=== PATIENT | male | born 1940 | race Caucasian/White ===

== ENCOUNTER 2019-07-12 15:23 | Outpatient (CLI) | payer MEDICARE, OTHER, SELFPAY ==
--- NOTE | 2019-07-12 15:45 | US_ITS ---
WS: [id number] RENAL ULTRASOUND REASON FOR EXAM: CHRONIC KIDNEY DISEASE TECHNIQUE: Grayscale and Doppler ultrasound examination of the kidneys. FINDINGS: Right kidney: Right kidney measures 11.0 cm x 4.5 cm x 4.7 cm. Multiple anechoic changes in both kidn eys the right kidney shows a larger lesion measures 2.42 x 1.80 x 2.0 cm. Left kidney: Left kidney measures 10.8 cm x 3.9 cm x 4.9 cm. Multiple hypoechoic lesions of the left kidney are also seen. The largest measures 3.82 x 3.91 x 3.22 cm. An additional lesion measures 1.92 x 1.86 x 2.15 cm both kidneys show cystic changes. No evidence of hydronephrosis no stones normal echotexture of both kidneys. The aorta was normal. US/US renal BI* [id number] IMPRESSION: Multiple anechoic areas are noted in both kidneys the largest were measured and seen above. The urinary bladder was contracted and poorly evaluated.
== END 2019-07-12 15:24 | disposition home or self-care (01) ==
LOC: US 15:24
PROVIDERS: Family Provider Internal Medicine; Visit Provider Internal Medicine Nephrology
DX: N18.9 Chronic kidney disease, unspecified (principal)
CPT/HCPCS: 76770

== ENCOUNTER 2020-10-08 12:52 | Outpatient (CLI) | payer MEDICARE, OTHER, SELFPAY ==
--- NOTE | 2020-10-08 13:10 | CT_ITS ---
WS: [id number] CT CHEST, ABDOMEN AND PELVIS WITHOUT CONTRAST. HISTORY: COLON CANCER METASTASIZED TO INTRA-ABDOMINAL LYMPH NODES TECHNIQUE: Contiguous 5 mm axial imaging performed through the chest, abdomen and pelvis without IV c ontrast, oral contrast has been provided. Coronal and sagittal reformats chest. Coronal and sagittal reformats through the abdomen and pelvis. All CT scans at [facility] use at least one of these dose optimization techniques: automated exposure control; mA and/or kV adjustment per patient s ize (includes targeted exams where dose is matched to clinical indication); or iterative reconstructi on. CONTRAST: None DLP: 1703.21 mGycm COMPARISON: 07/12/[address]: There are several small peripheral micronodules throughout both lungs which are very nonspe cific. There are also calcified granuloma. 5 mm nodule in the RIGHT middle lobe is probably a branchi ng vessel. Mild atherosclerosis of the aorta. Normal size pulmonary artery. Heart size is normal. No adenopathy. Substernal thyroid. Oral contrast layering in the distal esophagus. Abdomen CT: Normal size liver. There are a few scattered hypodensities which appear to been present o n the prior study. Cannot further evaluate without IV contrast. Gallbladder has been removed. Spleen and pancreas are negative on this unenhanced study. No adrenal mass. There are multiple bilateral oumou al masses. Some of these masses are low attenuation and some are of increased density or mixed densit y. No hydronephrosis. Mild atherosclerosis of aorta. No adenopathy No GI tract obstruction. Pelvic CT: No free fluid or adenopathy. Moderately well distended urinary bladder. Prostate gland is enlarged encroaching into the urinary bladder. Prostate gland is asymmetric and greater to the LEFT o f midline. No inguinal or pelvic adenopathy. Increase in thoracic kyphosis. Bones are osteopenic. Nonspecific 8 mm lytic focus in T5. CT/CT chest abd pel wo con IMPRESSION: 1. Study is compromised without IV contrast. 2. Numerous renal mass is correspond to multiple renal cysts and complex cysts as described on 07/12/2018. 3. Low-attenuation lesions within the liver are stable and probably small cyst s. 4. No adrenal mass. 5. No definite metastatic lesions within the lungs. There are a few micronodul es which can be followed up in 6-[address] if clinically thought necessar y. 6. No metastatic nodules within the abdomen or pelvis. 7. Enlarged asymmetric prostate gland extending into the urinary bladder. 8. Single lytic lesion in the T5 vertebral body. Very nonspecific. No prior st udies for comparison. Consider bone scan follow-up.
[2020-10-08] MEDS: iohexol 300 mg/mL 50 mL Btl PO (13:27)
== END 2020-10-08 12:53 | disposition home or self-care (01) ==
PROVIDERS: Visit Provider Urology
DX: C18.9 Malignant neoplasm of colon, unspecified (principal); N28.89 Other specified disorders of kidney and ureter; K76.89 Other specified diseases of liver; N40.0 Benign prostatic hyperplasia without lower urinary tract symptoms
CPT/HCPCS: 71250; 74176; Q9967

== ENCOUNTER 2022-10-26 11:31 | Outpatient (CLI) | payer MEDICARE, OTHER, SELFPAY ==
--- NOTE | 2022-10-26 11:53 | USCV_ITS ---
Orville Mead Age: 82 Gender: M : 1940 Exam Date: 10/26/2022 12:53 Ordering Phys: Shannan Mead MD Technologist: CT Exam Location: [facility] [place]_ Indication: swelling PROCEDURES: Bilaterally, the common femoral, superficial femoral, profunda femoral, popliteal, posterior tibial, greater saphenous veins, and the peroneal trunk were identified and interrogated in the standard fashion. These veins were found to be easily compressible with spontaneous blood flow. No evidence of insufficiency or thrombus noted. FINDINGS: normal us CONCLUSIONS No evidence of right lower extremity DVT. No evidence of left lower extremity DVT. Jay Garcia MD (Electronically Signed) Final Date: 26 October 2022 15:45 S
--- NOTE | 2022-10-26 12:42 | XR_ITS ---
WS: [id number] EXAMINATION: XR chest 2V* [id number] REASON FOR EXAM: LOCALIZED EDEMA COMPARISON: 05/18/2016 ORDER DATE: 10/26/2022 1:00 PM FINDINGS: The lungs are clear of infiltrate. The cardiac and mediastinal outlines are unremarkable. There ar e no significant pleural effusions . No significant abnormalities are noted in the spine or remainder of the bony thorax. Except for osteopenia and mild kyphosis. XR/XR chest 2V* [id number] IMPRESSION: NO ACUTE PULMONARY CHANGE.
[2022-10-26 13:53] LABS: Basophils % 0.4 %; Eosinophils # 0.1 10^3/uL (0.0-0.8); Eosinophils % 0.8 %; Hematocrit 31.5 % (42.0-52.0); Hemoglobin 9.7 g/dL (11.7-16.6); Lymphocytes # 1.8 10^3/uL (0.8-4.8); Lymphocytes % 20.1 %; Mean Corpuscular HGB Conc 30.8 g/dL (30.0-36.0); Mean Corpuscular Hemoglobin 32.8 pg (28.0-34.0); Mean Corpuscular Volume 106.4 fl (80-94); Mean Platelet Volume 9.8 fL (7.4-10.4); Monocytes # 0.9 10^3/uL (0.2-0.9); Neutrophils # 6.04 10^3/uL (1.8-7.7); Nucleated Red Blood Cells % 0 %; Platelet Count 199 10^3/cmm (130-400); Red Blood Count 2.96 10^6/uL (4.1-5.3); Red Cell Distribution Width 12.7 % (12.1-15.1); White Blood Count 9.2 10^3/uL (4.0-10.0)
[2022-10-26 14:07] LABS: Add Urine Microscopic? NO; Charge for UA Resulting for Rev
[2022-10-26 14:24] LABS: Alanine Aminotransferase 11 U/L (0-41); Alkaline Phosphatase 73 U/L (40-130); Anion Gap 14.9 (5-19); Aspartate Amino Transferase 13 U/L (0-40); Blood Urea Nitrogen 28 mg/dL (8-23); Calcium 8.8 mg/dL (8.5-10.5); Carbon Dioxide 25 mmol/L (22-29); Chloride 109 mmol/L (98-107); Globulin 2.4 g/dL (1.3-4.6); Glucose 81 mg/dL (65-115); NT Pro B Type Natriuretic Pept 391 pg/mL (0-450); Osmolality Calculated 305 mOsm/kg (285-295); Potassium 3.9 mmol/L (3.5-5.1); Sodium 145 mmol/L (136-145); Total Bilirubin 0.8 mg/dL (0.15-1.2); Total Protein 6.4 g/dL (6.6-8.7)
[2022-10-26 14:39] LABS: Urine Appearance Clear (CLEAR); Urine Color Yellow (Yellow); pH Urine 5 (5-7)
[2022-10-26 14:40] LABS: Bilirubin Urine Neg (Negative); Blood Urine Neg (Negative); Glucose Urine UA Norm (Normal); Ketones Urine Negative (Negative); Leukocyte Esterase Urine Negative (Negative); Nitrate Urine Negative (Negative); Protein Urine Neg (Negative); Urobilinogen Urine Norm (Negative)
== END 2022-10-26 11:32 | disposition home or self-care (01) ==
PROVIDERS: Visit Provider Internal Medicine
DX: R60.0 Localized edema (principal); Z01.89 Encounter for other specified special examinations
CPT/HCPCS: 71046; 80053; 81003; 83880; 85025; 93970

== ENCOUNTER 2023-10-17 06:00 | Outpatient (RCR) | payer MEDICARE, OTHER, SELFPAY | END 2023-11-05 23:59 | disposition home or self-care (01) | LOC: TPT 06:00 | PROVIDERS: Visit Provider Orthopaedic Surgery | DX: Z47.1 Aftercare following joint replacement surgery (principal); Z96.652 Presence of left artificial knee joint | CPT/HCPCS: 97110; 97162 ==

== ENCOUNTER 2023-11-06 06:00 | Outpatient (RCR) | payer MEDICARE, OTHER, SELFPAY | END 2023-12-06 23:59 | disposition home or self-care (01) | LOC: TPT 06:00 | PROVIDERS: Visit Provider Orthopaedic Surgery | DX: Z47.1 Aftercare following joint replacement surgery (principal); Z96.652 Presence of left artificial knee joint | CPT/HCPCS: 97110; 97140 ==

== ENCOUNTER 2023-12-07 06:00 | Outpatient (RCR) | payer MEDICARE, OTHER, SELFPAY | END 2024-01-06 23:59 | disposition home or self-care (01) | LOC: TPT 06:00 | PROVIDERS: Visit Provider Orthopaedic Surgery | DX: Z47.1 Aftercare following joint replacement surgery (principal); Z96.652 Presence of left artificial knee joint | CPT/HCPCS: 97110; 97140 ==

== ENCOUNTER 2024-01-07 06:00 | Outpatient (RCR) | payer MEDICARE, OTHER, SELFPAY | END 2024-01-17 23:59 | disposition home or self-care (01) | LOC: TPT 06:00 | PROVIDERS: Visit Provider Orthopaedic Surgery | DX: Z47.1 Aftercare following joint replacement surgery (principal); Z96.652 Presence of left artificial knee joint | CPT/HCPCS: 97110 ==

== ENCOUNTER 2024-10-28 10:29 | Outpatient (CLI) | payer MEDICARE, OTHER, SELFPAY ==
--- NOTE | 2024-10-28 10:39 | MR_ITS ---
WS: [id number] MRI RIGHT SHOULDER NONCONTRAST TECHNIQUE: Sagittal T2, coronal T1, T2 and proton density imaging. Axial gradient PDE imaging. CLINICAL INFORMATION: IMPINGEMENT SYNDROME OF R SHOULDER COMPARISON: None. FINDINGS: Moderate degenerative arthritis AC joint with small amount of fluid and edema. Slight subacromial spurring. Impingement on the distal supraspinatus. Slight chronic thinning of the distal supraspinatus. Trace subacromial and subdeltoid fluid. Distal supraspinatus and infraspinatus appear intact. Normal teres minor. The subscapularis tendon is normal in appearance. Biceps tendon appears intact within the bicipital groove. Intra-articular biceps tendon appears intact. Moderate to advanced degenerative narrowing of the glenohumeral articulation with slight hypertrophic spurring. MR/MR shoulder RT wo con* [id number] IMPRESSION: 1. Moderate degenerative arthritis AC joint with small amount of fluid and neri ma. Slight subacromial spurring. Impingement on the distal supraspinatus 2. Mild chronic thinning of the distal supraspinatus. Rotator cuff otherwise a ppears normal. 3. Biceps tendon intact within the bicipital groove. 4. Moderate to advanced degenerative narrowing of the glenohumeral articulatio n with slight hypertrophic spurring.
== END 2024-10-28 10:30 | disposition home or self-care (01) ==
LOC: RAD 10:34
PROVIDERS: PCP Internal Medicine; Visit Provider Orthopaedic Surgery
DX: M75.41 Impingement syndrome of right shoulder (principal); M19.011 Primary osteoarthritis, right shoulder
CPT/HCPCS: 73221